=== PATIENT | female | born 2000 | race Caucasian/White ===

== ENCOUNTER 2019-03-16 14:42 | Emergency (ER) | payer OTHER ==
[~2019-03-16] VITALS: Ht 160 cm; Wt 47.3 kg
[~2019-03-16 14:42] MED LIST: NEXP1IMP SC
[2019-03-16 14:43] VITALS: BP 118/62
[2019-03-16 15:50] LABS: BASO % 0.2 % (0.0-1.0); EOS # 0.1 10^3/uL (0.0-0.50); EOS % 0.7 % (0.0-3.0); HEMATOCRIT 37.8 % (36.0-47.0); HEMOGLOBIN 13.1 g/dl (12.0-15.5); LYMPH # 1.8 10^3/uL (1.5-6.5); LYMPH % 19.3 % (24.0-44.0); MEAN CORPUSCULAR HEMOGLOBIN 29.2 pg (27.0-33.0); MEAN CORPUSCULAR HGB CONC 34.7 g/dl (32.0-36.5); MEAN CORPUSCULAR VOLUME 84.4 fl (80.0-96.0); MONO # 0.5 10^3/uL (0.0-0.8); NEUTROPHILS # 6.8 10^3/uL (1.8-7.7); NEUTROPHILS % 74.6 % (36.0-66.0); PLATELET COUNT, AUTOMATED 293 10^3/uL (150-450); RED BLOOD COUNT 4.48 10^6/uL (4.00-5.40); WHITE BLOOD COUNT 9.2 10^3/uL (4.0-10.0)
[2019-03-16 21:40] LABS: ERYTHROCYTE SEDIMENTATION RATE 6 mm/hr (0-20)
== END 2019-03-16 17:26 | disposition home or self-care (01) ==
LOC: M ED 14:42
DX: M79.671 Pain in right foot (principal); Z98.890 Other specified postprocedural states

== ENCOUNTER 2019-03-22 11:19 | Day surgery (SDC) | payer OTHER ==
[~2019-03-22] VITALS: Ht 160 cm; Wt 46.6 kg
[~2019-03-22 11:19] MED LIST changes: +BUPIVACAINE/EPIN 0.5% 30 ML VIAL As Ordered ONE; +LIDOCAINE W/EPINEPHRINE 1% 20ML VIAL As Ordered ONE; +LR 1,000 ML IV ONE
[2019-03-22] MEDS ORDERED: dexameTHASONE 4 MG/ML 1ML VIAL (J1100) As Ordered ONE (11:56)
[2019-03-22] MEDS ORDERED: LIDOCAINE 2% INJ 100 MG/5 ML SDV (FOR ANES.) As Ordered ONE (11:56)
[2019-03-22] MEDS ORDERED: fentaNYL 100 MCG/2 ML INJECTION (J3010) As Ordered ONE ×2 (11:56→14:40)
[2019-03-22] MEDS ORDERED: METOCLOPRAMIDE INJ 10MG/2ML VIAL (J2765) As Ordered ONE (11:56)
[2019-03-22] MEDS ORDERED: PROPOFOL 200 MG/20 ML VIAL As Ordered ONE (11:56)
[2019-03-22] MEDS ORDERED: MIDAZOLAM INJ 2 MG/2 ML VIAL (J2250) As Ordered ONE (11:56)
[2019-03-22 12:11] LABS: URINE PREG TEST NEGATIVE (NEGATIVE)
[2019-03-22] MEDS ORDERED: PHENYLephrine HCL 500 MCG/5 ML (100MCG/ML) SYRINGE (J2370) As Ordered ONE (14:11)
[2019-03-22] MEDS ORDERED: NEOSTIGMINE 10 MG/10 ML VIAL (J2710) As Ordered ONE (14:20)
[2019-03-22] MEDS ORDERED: GLYCOPYRROLATE INJ 0.2 MG/ML 2 ML VIAL As Ordered ONE (14:20)
[2019-03-22] MEDS: fentaNYL 100 MCG/2 ML INJECTION (J3010) IV PRN ×4 (14:42→14:58)
[2019-03-22] MEDS ORDERED: LR 1,000 ML IV SCH ×2 (15:00)
[2019-03-22] MEDS ORDERED: PERCOCET 5MG/325MG TAB PO PRN (15:00)
[2019-03-22] MEDS ORDERED: ONDANSETRON 4MG/2ML VIAL (J2405) IV PRN (15:00)
[2019-03-22] MEDS ORDERED: ACETAMINOPH W/CODEINE #3 TAB UD PO PRN (15:00)
[2019-03-22 15:55] VITALS: BP 109/69
--- NOTE | 2019-03-23 15:31 | RO ---
DATE OF PROCEDURE: 03/22/2019 PREPROCEDURE DIAGNOSIS: Recurrent tonsillitis and adenoid hypertrophy. POSTPROCEDURE DIAGNOSIS: Recurrent tonsillitis and adenoid hypertrophy. OPERATIVE PROCEDURE: Tonsillectomy, examination of the nasopharynx. SURGEON: Jorge Alberto Vidal MD CODING CLERK: ANESTHESIA: DESCRIPTION OF PROCEDURE: Under general anesthesia with the patient intubated, a Patel-Ramón mouth gag was inserted. The tonsil area was infiltrated with lidocaine, epinephrine and Marcaine. I used the cautery to remove the tonsillar tissue and the areas of bleeding were cauterized with cautery. Once this was done, I placed the catheter through the nose and brought it out through the mouth. I examined the nasopharynx and there was very little adenoid tissue so adenoidectomy was not performed. Patient tolerated the procedure well. No blood loss. The patient was extubated and transferred to the recovery room in excellent condition.
== END 2019-03-22 15:55 | disposition home or self-care (01) ==
LOC: M SDC 11:19
PROVIDERS: ATTEND Otolaryngology
DX: J35.01 Chronic tonsillitis (principal); J35.2 Hypertrophy of adenoids; F41.9 Anxiety disorder, unspecified; G43.909 Migraine, unspecified, not intractable, without status migrainosus
CPT/HCPCS: 42826; 84703; 88302; J1100; J2250; J2370; J2710; J2765; J3010

== ENCOUNTER 2019-03-27 11:49 | Emergency (ER) | payer OTHER ==
[~2019-03-27] VITALS: Ht 160 cm; Wt 41.0 kg
[~2019-03-27 11:49] MED LIST changes: -BUPIVACAINE/EPIN 0.5% 30 ML VIAL As Ordered ONE; -LIDOCAINE W/EPINEPHRINE 1% 20ML VIAL As Ordered ONE; -LR 1,000 ML IV ONE
[2019-03-27] MEDS ORDERED: TYLETAB14 PO (11:56)
[2019-03-27] MEDS ORDERED: KETOROLAC 30 MG/ML VIAL (J1885) IV ONE (12:15)
[2019-03-27] MEDS ORDERED: NS 1,000 ML IV ONE (12:15)
[2019-03-27 12:19] LABS: BASO % 0.3 % (0.0-1.0); EOS % 0.5 % (0.0-3.0); HEMATOCRIT 44.9 % (36.0-47.0); LYMPH # 1.7 10^3/uL (1.5-6.5); LYMPH % 19.4 % (24.0-44.0); MEAN CORPUSCULAR HEMOGLOBIN 29.2 pg (27.0-33.0); MEAN CORPUSCULAR HGB CONC 33.4 g/dl (32.0-36.5); MEAN CORPUSCULAR VOLUME 87.4 fl (80.0-96.0); MONO # 0.7 10^3/uL (0.0-0.8); MONO % 7.9 % (0.0-5.0); NEUTROPHILS # 6.2 10^3/uL (1.8-7.7); NEUTROPHILS % 71.4 % (36.0-66.0); PLATELET COUNT, AUTOMATED 454 10^3/uL (150-450); RED BLOOD COUNT 5.14 10^6/uL (4.00-5.40); WHITE BLOOD COUNT 8.7 10^3/uL (4.0-10.0)
[2019-03-27 12:45] LABS: ALBUMIN 4.4 GM/DL (3.2-5.2); ALT/SGPT 27 U/L (12-78); BILIRUBIN,TOTAL 0.4 MG/DL (0.2-1.0); BLOOD UREA NITROGEN 15 MG/DL (7-18); CALCIUM LEVEL 9.7 MG/DL (8.5-10.1); CARBON DIOXIDE LEVEL 14 MEQ/L (21-32); CHLORIDE LEVEL 106 MEQ/L (98-107); GLUCOSE, FASTING 80 MG/DL (70-100); POTASSIUM SERUM 3.9 MEQ/L (3.5-5.1); SODIUM LEVEL 136 MEQ/L (136-145); TOTAL PROTEIN 8.9 GM/DL (6.4-8.2)
[2019-03-27] MEDS ORDERED: LIDOCAINE VISCOUS 2% SOLN 15ML UDC SS ONE (12:45)
[2019-03-27] MEDS ORDERED: LIDO1SOL8 PO (13:42)
[2019-03-27] MEDS ORDERED: HYDR1SOL49 PO ×2 (13:42→13:44)
[2019-03-27 13:48] VITALS: BP 117/70
[2019-03-27] MEDS ORDERED: HYDR1SOL22 PO (14:32)
== END 2019-03-27 13:56 | disposition home or self-care (01) ==
LOC: M ED 11:49
DX: G89.18 Other acute postprocedural pain (principal); Z90.89 Acquired absence of other organs
CPT/HCPCS: 80053; 85025; 96361; 96374; 99284; J1885

== ENCOUNTER 2019-04-28 00:37 | Emergency (ER) | payer OTHER ==
[~2019-04-28] VITALS: Ht 160 cm; Wt 45.5 kg
[2019-04-28 00:37] VITALS: BP 129/76
[~2019-04-28 00:37] MED LIST changes: +HYDR1SOL22 PO; +HYDR1SOL49 PO; +LIDO1SOL8 PO; +TYLETAB14 PO
[2019-04-28] MEDS ORDERED: NORC1TAB7 PO (01:17)
[2019-04-28] MEDS ORDERED: BACITRACIN OINT 30GM TOP ONE (01:30)
[2019-04-28] MEDS ORDERED: NORCO 5/325MG TABLET (BULK FOR ED) PO ONE (01:30)
--- NOTE | 2019-04-28 07:15 | REP ---
Clinical: Trauma. Technique: Two orthogonal views of the left clavicle. Findings: Mid clavicular shaft fracture is appreciated with overriding fracture site by approximately 1 cm. Sternoclavicular and acromioclavicular joints appear intact. Impression: Transverse mid clavicular shaft fracture. Electronically Signed by Elmer Franco MD 04/28/2019 07:07 A
--- NOTE | 2019-04-28 07:17 | REP ---
Clinical: Trauma . Technique: Internal rotation, external rotation, and Y view left shoulder . Findings: Mid clavicular shaft fracture noted. The acromioclavicular and glenohumeral joints are intact. No periarticular calcifications or degenerative changes are appreciated. Sub acromial space is normal. Surrounding soft tissues are unremarkable. Impression: Mid clavicular shaft fracture. Otherwise, normal left shoulder radiographs. Electronically Signed by Elmer Franco MD 04/28/2019 07:08 A
== END 2019-04-28 01:43 | disposition home or self-care (01) ==
LOC: M ED 00:37
DX: S42.025A Nondisplaced fracture of shaft of left clavicle, initial encounter for closed fracture (principal); T14.8XXA Other injury of unspecified body region, initial encounter; V00.131A Fall from skateboard, initial encounter; Y92.410 Unspecified street and highway as the place of occurrence of the external cause

== ENCOUNTER 2019-04-30 16:14 | Emergency (ER) | payer OTHER ==
[~2019-04-30] VITALS: Ht 160 cm; Wt 46.1 kg
[~2019-04-30 16:14] MED LIST changes: +NORC1TAB7 PO
[2019-04-30] MEDS ORDERED: ZOFR4TAB16 PO (17:56)
[2019-04-30 18:40] VITALS: BP 120/80
--- NOTE | 2019-04-30 19:17 | REP ---
REASON: Head pain after trauma. TECHNIQUE: 4.5 mm contiguous transaxial sections were obtained from the skull base to the cerebral convexities with thin cuts through the posterior fossa without the administration of intravenous contrast. FINDINGS: The ventricles and sulci are consistent with the patient's age. There are no extra-axial fluid collections. There is no mass effect. The deep cerebral white matter is consistent with the patient's age. The orbital and petrous structures, cerebellopontine angles, and posterior fossa are unremarkable. The sella turcica, cavernous, and paracavernous structures are essentially unremarkable. The visualized portions of the paranasal sinuses and mastoid air cells are clear. Images of the skull base show no gross abnormality. IMPRESSION: Essentially unremarkable CT examination of the brain. Electronically Signed by Miles Marcos DO 04/30/2019 07:45 P
== END 2019-04-30 18:49 | disposition home or self-care (01) ==
LOC: M ED 16:14
DX: S06.0X9A Concussion with loss of consciousness of unspecified duration, initial encounter (principal); V28.5XXA Motorcycle passenger injured in noncollision transport accident in traffic accident, initial encounter; Y92.9 Unspecified place or not applicable; Y93.9 Activity, unspecified; Y99.9 Unspecified external cause status; F41.9 Anxiety disorder, unspecified; F32.9 Major depressive disorder, single episode, unspecified; Z79.899 Other long term (current) drug therapy

== ENCOUNTER 2019-05-21 10:59 | Emergency (ER) | payer OTHER ==
[~2019-05-21] VITALS: Ht 160 cm; Wt 40.9 kg
[~2019-05-21 10:59] MED LIST changes: +ZOFR4TAB16 PO
[2019-05-21 12:20] VITALS: BP 109/67
[2019-05-21] MEDS ORDERED: TRIA25CR TOP (12:20)
== END 2019-05-21 12:29 | disposition home or self-care (01) ==
LOC: M ED 10:59
DX: L23.1 Allergic contact dermatitis due to adhesives (principal); Z98.890 Other specified postprocedural states

== ENCOUNTER 2019-10-07 11:39 | Emergency (ER) | payer OTHER ==
[~2019-10-07] VITALS: Ht 160 cm; Wt 47.0 kg
[2019-10-07 11:39] VITALS: BP 114/71
[~2019-10-07 11:39] MED LIST changes: +TRIA25CR TOP
[2019-10-07] MEDS ORDERED: ERYT1OIN26 OD (12:21)
[2019-10-07] MEDS ORDERED: ERYTHROMYCIN OPHTH OINT OD ONE (12:30)
== END 2019-10-07 12:32 | disposition home or self-care (01) ==
LOC: M ED 11:39
DX: H10.31 Unspecified acute conjunctivitis, right eye (principal); Z20.828 Contact with and (suspected) exposure to other viral communicable diseases

== ENCOUNTER 2019-10-29 07:05 | Emergency (ER) | payer OTHER ==
[~2019-10-29] VITALS: Ht 160 cm; Wt 47.3 kg
[~2019-10-29 07:05] MED LIST changes: +ERYT1OIN26 OD
[2019-10-29] MEDS ORDERED: LAX (07:11)
[2019-10-29] MEDS ORDERED: GI COCKTAIL 50ML BTL(HYOSCYAMINE/MAALOX/LIDOCAINE VISCOUS)(1:3:1) PO ONE (08:15)
[2019-10-29] MEDS ORDERED: SUCRALFATE SUSP 1GM/10ML UD PO ONE (08:45)
[2019-10-29 08:54] LABS: ALBUMIN 3.7 GM/DL (3.2-5.2); ALT/SGPT 23 U/L (12-78); BILIRUBIN,DIRECT 0.1 MG/DL (0.0-0.2); BILIRUBIN,TOTAL 0.3 MG/DL (0.2-1.0); BLOOD UREA NITROGEN 10 MG/DL (7-18); CALCIUM LEVEL 8.7 MG/DL (8.5-10.1); CARBON DIOXIDE LEVEL 26 MEQ/L (21-32); CHLORIDE LEVEL 108 MEQ/L (98-107); CREATININE FOR GFR 0.68 MG/DL (0.55-1.30); GLUCOSE, FASTING 98 MG/DL (70-100); LIPASE 103 U/L (73-393); SODIUM LEVEL 140 MEQ/L (136-145); TOTAL PROTEIN 6.5 GM/DL (6.4-8.2)
[2019-10-29 09:14] LABS: BASO % 0.2 % (0.0-1.0); EOS # 0.1 10^3/uL (0.0-0.5); EOS % 1.8 % (0.0-3.0); HEMATOCRIT 38.5 % (36.0-47.0); HEMOGLOBIN 12.7 g/dl (12.0-15.5); LYMPH # 1.7 10^3/uL (1.5-5.0); LYMPH % 30.8 % (24.0-44.0); MEAN CORPUSCULAR HEMOGLOBIN 29.1 pg (27.0-33.0); MEAN CORPUSCULAR VOLUME 88.1 fl (80.0-96.0); MONO # 0.6 10^3/uL (0.0-0.8); MONO % 10.3 % (0.0-5.0); NEUTROPHILS # 3.1 10^3/uL (1.5-8.5); NEUTROPHILS % 56.7 % (36.0-66.0); PLATELET COUNT, AUTOMATED 269 10^3/uL (150-450); RED BLOOD COUNT 4.37 10^6/uL (4.00-5.40); WHITE BLOOD COUNT 5.5 10^3/uL (4.0-10.0)
[2019-10-29 09:46] VITALS: BP 119/68
[2019-10-29] MEDS ORDERED: SUCR1SS PO (09:53)
[2019-10-29] MEDS ORDERED: OMEP20CA4 PO (09:56)
== END 2019-10-29 10:08 | disposition home or self-care (01) ==
LOC: M ED 07:05
DX: K29.00 Acute gastritis without bleeding (principal); Z79.3 Long term (current) use of hormonal contraceptives; Z79.899 Other long term (current) drug therapy

== ENCOUNTER 2019-11-29 20:54 | Emergency (ER) | payer OTHER ==
[~2019-11-29] VITALS: Ht 160 cm; Wt 47.3 kg
[~2019-11-29 20:54] MED LIST changes: +LAX; +OMEP-172 PO; +SUCR1SS PO
[2019-11-29 20:55] VITALS: BP 119/69
== END 2019-11-29 23:40 | disposition left against medical advice (07) ==
LOC: M ED 20:54
DX: Z53.21 Procedure and treatment not carried out due to patient leaving prior to being seen by health care provider (principal)

== ENCOUNTER 2019-12-03 13:11 | Emergency (ER) | payer OTHER ==
[~2019-12-03] VITALS: Ht 160 cm; Wt 46.1 kg
[~2019-12-03 13:11] MED LIST changes: -OMEP-172 PO; +OMEP1CAP73 PO
[2019-12-03 15:00] VITALS: BP 98/61
== END 2019-12-03 15:00 | disposition home or self-care (01) ==
LOC: M ED 13:11
DX: S60.440A External constriction of right index finger, initial encounter (principal); W49.04XA Ring or other jewelry causing external constriction, initial encounter; Y92.89 Other specified places as the place of occurrence of the external cause

== ENCOUNTER 2020-04-28 01:22 | Emergency (ER) | payer OTHER ==
[~2020-04-28 01:22] MED LIST changes: -ERYT1OIN26 OD; +ERYT5OIN25 OD; -LIDO1SOL8 PO; +LIDO2SOL17 PO
== END 2020-04-28 02:47 | disposition home or self-care (01) ==
LOC: M ED 01:22 → EDBD 01:22 → M ED 02:47
DX: Z63.8 Other specified problems related to primary support group (principal); Z60.9 Problem related to social environment, unspecified; Z79.3 Long term (current) use of hormonal contraceptives